=== PATIENT | male | born 1970 | race Caucasian/White ===

== ENCOUNTER 2018-06-30 09:02 | Day surgery (SDC) | payer OTHER, BC ==
[2018-06-22 08:38] VITALS: BMI 32.6
[~2018-06-30 09:02] MED LIST: EPINEPHrine- 1.5 MG in Sodium Chloride 0.9% Irrig 3,000 ML IR ONE
[2018-06-30] MEDS ORDERED: Midazolam 2 MG/2 ML VIAL ONE (10:52)
[2018-06-30] MEDS ORDERED: Propofol 10 mg/ml Inj (20 ML) ONE ×2 (10:52→11:42)
[2018-06-30] MEDS ORDERED: Rocuronium 10 mg/ml (5 ml) ONE (10:54)
[2018-06-30] MEDS ORDERED: EPINEPHrine- 1.5 MG in Sodium Chloride 0.9% Irrig 3,000 ML IR ONE (11:00)
[2018-06-30] MEDS: ceFAZolin 1 gm in NS 2 GM/200 ML BAG IVPB ONE ×2 (11:55→12:15)
[2018-06-30] MEDS: Lidocaine/Epinephrine 1% 1:100000 10 ML IJ ONE ×2 (12:15→12:20)
[2018-06-30] MEDS ORDERED: Phenylephrine 10 mg/ml Inj ONE (12:21)
[2018-06-30] MEDS ORDERED: Neostigmine 1:1000 (1 mg/ml) Inj ONE (13:21)
[2018-06-30] MEDS ORDERED: HYDROmorphone 0.5 mg/0.5 ml ISec ONE (13:55)
[2018-06-30] MEDS: HYDROmorphone 0.5 mg/0.5 ml ISec IVP PRN ×3 (13:56→16:42)
[2018-06-30] MEDS ORDERED: Lactated Ringer's 1,000 ML IV SCH (14:00)
[2018-06-30 14:46] VITALS: TEMP 97.8
[2018-06-30] MEDS ORDERED: Ropivacaine 0.5% PF (20 ml) inj INJ ONE (17:25)
--- NOTE | 2018-06-30 18:19 | RAD ---
HISTORY: r/o pneumothorax COMPARISON: None available. TECHNIQUE: Chest, one view. FINDINGS: Examination limited by habitus and hypoinflation. LUNGS: No focal consolidation. Please note that chest x-ray has limited sensitivity for the detection of pulmonary masses. PLEURA: No significant pleural effusion identified. No definite pneumothorax . CARDIOVASCULAR: The cardiomediastinal silhouette appears within normal limits of size. No significant atherosclerotic calcification present. OSSEOUS STRUCTURES: No acute osseous abnormality identified. VISUALIZED UPPER ABDOMEN: Unremarkable. OTHER FINDINGS: None. IMPRESSION: No acute findings identified.
--- NOTE | 2018-06-30 18:54 | PCM.ANESB1 ---
Interscalene Block - Brachial Plexus Date of Procedure: 06/30/18 Anesthesiologist: Johnathan Pre-Procedure Diagnosis: s/p left shoulder arthroscopy Procedure Performed: Interscalene Block of Brachial Plexus Left - Procedure Interscalene Block of Brachial Plexus: Left brachial plexus block, interscalene approach, performed in PACU post- operatively. Block requested by Dr. Jerez for post-op pain control. Under sterile conditions and ultrasound guidance, 20 cc 0.5% ropivacaine injected, 5 cc increments, negative aspiration throughout, 2" stimulpex needle. Shortly after block, patient reported shortness of breath, SpO2 in mid 90s on room air, was in mild distress. On exam, patient had b/l breath sounds, CXR was done to r/o PTX. About an hour later, patient reported breathing finally improved after burping. He was able to get up OOB and ambulate to the bathroom without difficulty.
[2018-06-30 20:48] VITALS: BP 138/79; PULSE 106; RESP 13; O2SAT 93
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
== END 2018-06-30 20:10 | disposition home or self-care (01) ==
LOC: C.SDS 09:02
PROVIDERS: ATTEND Orthopaedic Surgery
DX: S43.432A Superior glenoid labrum lesion of left shoulder, initial encounter (principal); M65.812 Other synovitis and tenosynovitis, left shoulder; E78.5 Hyperlipidemia, unspecified
CPT/HCPCS: 29807; 29822; 71045; J0171; J0690; J1170; J2001; J2250; J2370; J2405; J2704; J2710; J3010